=== PATIENT | male | born 1950 | race Caucasian/White ===

== ENCOUNTER 2024-10-24 12:44 | Emergency (ER) | payer OTHER ==
[~2024-10-24] VITALS: Ht 175.3 cm; Wt 81.7 kg
[2024-10-24] MEDS ORDERED: Ketorolac Tromethamine 15mg Vial IM ONE (13:30)
== END 2024-10-24 16:34 | disposition home or self-care (01) ==
LOC: ER 12:44
DX: S92.411A Displaced fracture of proximal phalanx of right great toe, initial encounter for closed fracture (principal); Z59.89 Other problems related to housing and economic circumstances; W20.8XXA Other cause of strike by thrown, projected or falling object, initial encounter
CPT/HCPCS: 73630; 96372; 99283-25; J1885